=== PATIENT | female | born 1985 | race Two or more races ===

== ENCOUNTER 2025-05-26 17:00 | Emergency (ER) | payer SELFPAY ==
[2025-05-26 17:24] VITALS: BP 117/78; PULSE 72; RESP 18; TEMP 36.8; O2SAT 100
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
[2025-05-26 18:59] VITALS: PULSE 71; RESP 17; TEMP 36.8; O2SAT 97
== END 2025-05-26 19:00 | disposition home or self-care (01) ==
PROVIDERS: Emergency Provider Emergency Medicine
DX: S29.012A Strain of muscle and tendon of back wall of thorax, initial encounter (principal); S20.219A Contusion of unspecified front wall of thorax, initial encounter; S13.4XXA Sprain of ligaments of cervical spine, initial encounter; V43.62XA Car passenger injured in collision with other type car in traffic accident, initial encounter; Y92.410 Unspecified street and highway as the place of occurrence of the external cause
CPT/HCPCS: 71046; 72040; 72070; 81025; 99283